=== PATIENT | male | born 1955 | race Caucasian/White ===

== ENCOUNTER 2016-08-04 11:20 | Day surgery (SDC) | payer BC ==
[2016-08-04] VITALS (15 sets, daily range): BP systolic 91–117; BP diastolic 44–60; PULSE 74–104; RESP 13–17; TEMP 97.6–98.5; O2SAT 91–97; Ht 177.8 cm; Wt 91.9 kg
[~2016-08-04] VITALS: Ht 177.8 cm; Wt 91.9 kg
[~2016-08-04 11:20] MED LIST: CEFAZOLIN 1 GRAM INJECTION IV ONE; GLIM1TAB2 PO; INSU3INS3 INJ; LIDOCAINE 1% (10mg/ml) 2ml SDV INJ ONE; LISI-625 PO; METF850T2 PO; MONT10TA25 PO; WARF5TAB6 PO
[2016-08-04 12:13] LABS: BASOPHILS % (AUTO) 0.4 % (0-2); EOSINOPHILS # (AUTO) 0.1 T/MM3 (0-0.5); EOSINOPHILS % (AUTO) 1.3 % (0-4); HCT - HEMATOCRIT 29.8 % (41-53); HGB - HEMOGLOBIN 10.8 GM/DL (13.5-17.5); LYMPHOCYTES # (AUTO) 1.2 T/MM3 (1-4.8); MEAN CORPUSCULAR HGB 45.2 UUG (26-34); MEAN CORPUSCULAR HGB CONC(MCHC 36.2 GM/DL (31-37); MEAN CORPUSCULAR VOLUME 124.7 UM3 (80-100); MEAN PLATELET VOLUME 10.7 UM3 (9.4-12.4); MONOCYTES # (AUTO) 0.1 T/MM3 (0-0.8); MONOCYTES % (AUTO) 1.5 % (0-9.0); NEUTROPHILS #(AUTO)-ABSOLUTE 3.5 T/MM3 (1.8-7.7); NEUTROPHILS % (AUTO) 71.8 % (33-66); RED BLOOD COUNT 2.39 M/MM3 (4.50-5.90); WBC - WHITE BLOOD COUNT 4.8 T/MM3 (4.5-11.0)
[2016-08-04 12:14] LABS: INR 1.13 (0.76-1.04); PROTHROMBIN TIME 12.3 SEC (9.31-12.49)
[2016-08-04 12:19] LABS: ANION GAP 8 MEQ/L (5-15); BUN/CREATININE RATIO 18 RATIO (6-26); CALCIUM 9.2 MG/DL (8.4-10.2); CHLORIDE 102 MEQ/L (98-107); CO2 - CARBON DIOXIDE 32 MEQ/L (22-30); CREATININE 0.9 MG/DL (0.8-1.5); GLOMERULAR FILTRATION RATE 86; GLUCOSE 81 MG/DL (75-110); POTASSIUM 4.4 MEQ/L (3.6-5); SODIUM 142 MEQ/L (134-144)
[2016-08-04] MEDS: LR 1,000 ML IV SCH ×2 (12:45→16:45)
--- NOTE | 2016-08-04 13:23 | ANESPREOP ---
Anesthesia Record Date and Time DATE: 08/04/16 TIME: 13:22 Proposed Surgical Procedure EXCISION OF SUSPICIOUS SKIN LESION AT POSTERIOR SCALP W/ CLOSURE OF EXC. W/ NPO since: mn Allergies: Coded Allergies: No Known Allergies (Unverified , 08/04/16) Ht/Wt/BMI Height: 5 ' 10.00 " Weight: 91.900 kg BMI: 29.1 kg/m2 Vital Signs Date Time Temp Pulse Resp B/P Pulse Ox O2 Delivery O2 Flow Rate FiO2 08/04/16 11:51 98.5 74 13 117/55 97 Room Air Medications Inpatient Medications Current Medications Medications (Trade) Dose Ordered Sig/Bhumika Start Time Stop Time Status Last Admin Dose Admin Lactated Ringer's (Lactated Ringers) 1,000 ml @ 50 mls/hr Q20H 08/04/16 07:00 08/04/16 12:45 50 MLS/HR Glimepiride (Glimepiride) 1 Mg Tablet, 1 TAB PO DAILY, (Reported) Last Taken: on 08/03/162199 Insulin Glargine,Hum.rec.anlog (Lantus Solostar ) 1 Unit Pen, 20 UNIT INJ HS, (Reported) Last Taken: on 08/03/162199 Lisinopril (Lisinopril) 5 Mg Tablet, 1 TAB PO DAILY, (Reported) Last Taken: on 08/03/162199 Metformin HCl (Metformin HCl) 850 Mg Tablet, 1 TAB PO BID, (Reported) Last Taken: on 08/03/161999 Montelukast Sodium (Montelukast Sodium) 10 Mg Tablet, 10 MG PO HS, (Reported) Take 1 tablet, by mouth, one time a day (at bedtime). Last Taken: on 08/03/162199 Warfarin Sodium (Warfarin Sodium) 5 Mg Tablet, 1 TAB PO DAILY, (Reported) Last Taken: on 07/28/16 Currently on Beta Ovidio: No Medical/Surgical History Anesthesia PMH: Reports: *Diabetes (TYPE 2 DIABETIC, blood sugar 81), * Hypertension (TAKES MEDS), Clotting Problems (TAKES WARFARIN), Deep Vein Thrombosis (HX LEFT LEG) Smoking Status: Never smoker Use Chewing Tobacco?: No Second Hand Exposure: No Substance Use Type: does not use Alcohol Intake: none Past Surgical History Orthopedic Surgeries: Yes - L. ACL REPAIR Abdominal Surgeries: Genitourinary Surgeries: Cardiac Surgeries: Endocrine Surgeries: Reproductive Surgeries: Yes - VASECTOMY Neurological Surgeries: Ear Surgeries: Nose Surgeries: Throat Surgeries: Other Surgeries: Yes - COLONOSCOPY Anesthesia Adverse Reactions: FOUND none Family Hx of Anesthesia Advers: none Hx of Motion Sickness: No Pertinent Findings Laboratory Tests 08/04/16 12:02 Test 08/04/16 12:02 Prothromb Time International Ratio 1.13 (0.76-1.04) Physical Exam Respiratory: Bilat breath sounds equal, Lungs clear Cardiovascular: FOUND Regular rate, rhythm Airway Assessment Mallampati Score: II TMD: 3 Fingerbreadths Neck Extension: Fair Overall Assessment: No Airway Concerns ASA: 2 Plan Anesthesia Plan: TIVA, LMA, GETA Discussion Discussed risks/options/alternatives of anesthesia and questions answered. Patient consents. Nursing pain assessment noted. Present: Family Member Attestation Statement Prior to the delivery of any anesthetic medication, I examined the patient, developed the plan, obtained the patient's consent and discussed the risk and benefits of the procedure with the patient/guardian. MANNIE ARMSTRONG SUBSTANCE ABUSE NURSE Aug 04, 2016 13:23
[2016-08-04] MEDS ORDERED: BUPIVACAINE 0.25% (2.5mg/ml) INJ 30ml SDV ONE (13:50)
[2016-08-04] MEDS ORDERED: FENTANYL 250mcg/5ml INJECTION ONE (14:11)
[2016-08-04] MEDS ORDERED: PROPOFOL 200mg 20 ML IV ONE ×2 (14:11→16:22)
[2016-08-04] MEDS ORDERED: LIDOCAINE 2% (20mg/ml) 5ml PF SDV ONE (14:11)
[2016-08-04] MEDS ORDERED: ROCURONIUM 50mg/5ml INJECTION IV ONE (14:11)
[2016-08-04] MEDS ORDERED: DEXAMETHASONE 4mg/ml - 1ml INJECTION ONE (15:09)
[2016-08-04] MEDS ORDERED: ONDANSETRON 4mg/2ml INJECTION ONE (15:09)
[2016-08-04] MEDS ORDERED: SALINE FLUSH 10ml SYRINGE ONE ×2 (15:13→15:37)
[2016-08-04] MEDS ORDERED: EPHEDRINE SULFATE 50mg/ml INJECTION ONE (15:13)
[2016-08-04] MEDS ORDERED: PHENYLEPHRINE 10mg/ml INJECTION ONE (15:37)
--- NOTE | 2016-08-04 16:41 | GSPOSTPROC ---
Immediate Operative Note DATE: 08/04/16 TIME: 16:38 Postop Diagnosis: Suspicious skin lesion at left posterior scalp Surgical Procedure: Other (Excision of suspicious skin lesion at left posterior scalp) Surgeon: Surekha ASA: 2 MAGGY DELEON MD Aug 04, 2016 16:40
[2016-08-04] MEDS ORDERED: ONDANSETRON 4mg/2ml INJECTION IV PRN (16:45)
[2016-08-04] MEDS ORDERED: IBUPROFEN 200 MG TABLET PO PRN (16:45)
[2016-08-04] MEDS ORDERED: OXYCODONE I.R. 5 MG TABLET PO PRN (16:45)
[2016-08-04] MEDS ORDERED: ACETAMINOPHEN 500 MG TABLET PO PRN (16:45)
--- NOTE | 2016-08-04 18:19 | ANESPO ---
Post-Op Note Date 08/04/16 Time: 18:18 Status Pt Participated in Evaluation: Pt participated in person Vital Signs Date Time Temp Pulse Resp B/P Pulse Ox O2 Delivery O2 Flow Rate FiO2 08/04/16 17:57 90 16 112/57 93 Room Air 08/04/16 17:42 97.6 Respiratory Function: Airway patent Cardiovascular Function: Regular pulse Pain Level Intensity: 1 Hydration: Taking po fluids, IV infusing Complications during Recovery None apparent Follow-Up Instructions Instructions Per Surgeon MANNIE DAVIS CRNA Aug 04, 2016 18:19
--- NOTE | 2016-08-05 11:22 | OPNOTEF ---
DATE OF OPERATION 08/04/2016 PREOPERATIVE DIAGNOSIS Suspicious nonhealing skin lesion at left posterior scalp. POSTOPERATIVE DIAGNOSIS Suspicious nonhealing skin lesion at left posterior scalp. OPERATION Excision of a suspicious nonhealing skin lesion at left posterior scalp. SURGEON Dr. Irby ANESTHESIA General. ASA CLASS 2 FINDINGS This patient did have a 1.7 cm x 1.6 cm elevated suspicious-appearing skin lesion at the left posterior scalp. The skin lesion along with a 3-mm margin of the surrounding normal-appearing skin were excised and submitted for frozen section examination by the pathologist. The pathologist did return a verbal frozen section examination report indicating that this skin lesion was not a basal cell skin carcinoma or a squamous cell skin carcinoma. The skin lesion consisted of sheets of inflammatory cells. The exact nature of the skin lesion was not absolutely certain based on the frozen section examination. DESCRIPTION OF OPERATION The patient was placed in supine position on the operating table. General anesthesia was satisfactorily induced using endotracheal intubation. The patient was changed to right lateral recumbent position on the operating table. The hair around the skin lesion at the left posterior scalp was shaved. The skin lesion site at the left posterior scalp was prepped and draped in routine sterile fashion. Bupivacaine 0.25% without epinephrine was infiltrated into skin and subcutaneous tissue at the suspicious skin lesion site at the left posterior scalp. A scalpel was used to excise a piece of skin and subcutaneous tissue containing the suspicious skin lesion along with a 3 mm margin of normal-appearing skin on all sides. This specimen of skin and subcutaneous tissue was pinned to a cloth drape with some needles and superior, inferior, lateral and medial margins were marked on the cloth drape around the specimen to orient the specimen for the pathologist. The specimen was then submitted for frozen section examination by the pathologist. Hemostasis was achieved at the excision site wound by clamping one bleeding point and ligating it with 4-0 Vicryl suture and by controlling other bleeding points with the monopolar electrosurgery device. Satisfactory hemostasis was achieved. A verbal frozen section examination report was returned from the pathologist with results as described above. It was thought at this time that this wound might be able to be closed primarily. A triangular piece of skin was excised at one end of the wound to convert the wound into more of an elliptical shape. Skin margins were undermined at each side of the wound. The wound was then able to be closed. The superior margin of the wound was approximated to the inferior margin of the wound with a series of interrupted subcuticular stitches using 3-0 Vicryl suture. The superior margin of the wound was then more closely approximated to the inferior margin of the wound with skin akash. Sponge, needle and instrument counts were all correct. The patient did appear to tolerate the operation well. The patient was transferred from the operating room to the recovery room in satisfactory condition. JASPRE
== END 2016-08-04 18:40 | disposition home or self-care (01) ==
LOC: SCU 11:20
PROVIDERS: ATTEND Surgery
DX: L98.0 Pyogenic granuloma (principal); E11.9 Type 2 diabetes mellitus without complications; J30.89 Other allergic rhinitis; Z79.01 Long term (current) use of anticoagulants; Z79.84 Long term (current) use of oral hypoglycemic drugs; Z79.899 Other long term (current) drug therapy; Z86.718 Personal history of other venous thrombosis and embolism; Z86.010 Personal history of colon polyps
CPT/HCPCS: 11423; 13121; 36415; 80048; 82948; 85025; 85610; J0690; J1100; J2370; J2405; J2704; J3010; J7120; S0020